=== PATIENT | male | born 1980 | race Caucasian/White ===

== ENCOUNTER 2017-08-13 18:10 | Emergency (ER) | payer BC, OTHER ==
[~2017-08-13] VITALS: Ht 180.3 cm; Wt 81.6 kg
--- NOTE | 2017-08-13 18:23 | NUR ---
A/OX4, W/ C/O ABSCESS TO LEFT FOREARM. Hx OF IV DRUG USE NAD VSS RR EVEN AND UNLABORED. WILL CONT TO MONITOR
[2017-08-13] MEDS ORDERED: LIDOCAINE 1%-EPI 1:100,000 50 ML VIAL IJ ONE (18:28)
[2017-08-13] MEDS ORDERED: LIDOCAINE 1% INJ 50 ML MDV IJ ONE (18:30)
[2017-08-13] MEDS ORDERED: LIDOCAINE HCL/PF 1% 30 ML SDV ONE (18:30)
[2017-08-13] MEDS ORDERED: TDAP [DIPH/PERTUSSIS/TET] 0.5 ML VIAL IM ONE ×2 (18:51→19:00)
--- NOTE | 2017-08-13 18:55 | NUR ---
PT CHANGED HIS MIND, DOES NOT WANT TO TAKE THE FLU VACCINE ANYMORE
--- NOTE | 2017-08-13 18:57 | NUR ---
Patient discharged to home in stable condition. Written and verbal after care instructions given. Patient verbalizes understanding of instruction.
[2017-08-13 18:58] VITALS: BP 137/91
[2017-08-13] MEDS ORDERED: FLU VACC QS 2017-18(36MOS+)/PF 0.5 ML DISP.SYRIN IM ONE (19:00)
== END 2017-08-13 18:59 | disposition home or self-care (01) ==
LOC: ER 18:11
DX: L03.114 Cellulitis of left upper limb (principal); L02.414 Cutaneous abscess of left upper limb; Z23 Encounter for immunization
CPT/HCPCS: 10060; 90471; 90715; 99283; A4606; A6403; J3490; Q2036; Z7610

== ENCOUNTER 2017-12-10 21:58 | Emergency (ER) | payer BC, OTHER ==
[~2017-12-10] VITALS: Ht 177.8 cm; Wt 79.4 kg
--- NOTE | 2017-12-10 22:10 | NUR ---
PT AMBULATORY TO ER BED 15. BIB SELF FROM HOME, PT C/O ABSCESSES BILAT UE X 3 DAYS S/P IV DRUG USE. 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 VSS/RESP EVEN UNLABORED/NAD NOTED/SKIN WARM AND DRY/DENIES N-V-D/AOX4. AWAITING MD ARRIOLA.
--- NOTE | 2017-12-10 22:30 | NUR ---
AT BEDSIDE FOR EVAL.
--- NOTE | 2017-12-10 23:00 | NUR ---
Patient does not wish to proceed with medical care recommended by Dr. Rivas. Patient given information related to possible complications, up to and including , which could occur as a result of leaving the hospital at this time. Patient verbalizes understanding of risks involved due to leaving against medical advice. Patient has signed AMA form. Patient discharged to home in stable condition. Written and verbal after care instructions given. Patient verbalizes understanding of instruction. Patient ambulatory with a steady gait.
[2017-12-10 23:09] VITALS: BP 113/83
== END 2017-12-10 23:10 | disposition left against medical advice (07) ==
LOC: ER 22:06
DX: L03.114 Cellulitis of left upper limb (principal); F19.10 Other psychoactive substance abuse, uncomplicated
CPT/HCPCS: A4606; Z7610